=== PATIENT | male | born 1975 | race Caucasian/White ===

== ENCOUNTER 2018-11-22 00:48 | Emergency (ER) | payer BC ==
[~2018-11-22] VITALS: Ht 180.3 cm; Wt 72.6 kg
[2018-11-22] MEDS ORDERED: ALEVE220 MG PO (01:48)
[2018-11-22] MEDS ORDERED: TRAMADOL HCL50 MG PO (02:42)
[2018-11-22] MEDS ORDERED: CYCLOBENZAPRINE10 MG PO (02:42)
== END 2018-11-22 03:05 | disposition home or self-care (01) ==
LOC: ED 00:48
DX: M54.41 Lumbago with sciatica, right side (principal)
CPT/HCPCS: 99283